=== PATIENT | male | born 1965 | race Caucasian/White ===

== ENCOUNTER 2025-04-14 12:11 | Inpatient (IN) | payer MEDICARE, OTHER ==
[2025-04-14] MEDS: LACTATED RINGERS 1,000 ML IV SCH (12:26)
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
[2025-04-14 12:29] LABS: Glucose,Whole Blood 210 mg/dL (70-110)
[2025-04-14] MEDS: cefTRIAXone IN SWFI 1,000 MG/10 ML SYRINGE IVP STA ×2 (12:31→12:32)
[2025-04-14 12:47] LABS: Basophils # (A) 0.04 10*3/uL (0.00-0.10); Basophils % (A) 0.5 %; Eosinophils # (A) 0.09 10*3/uL (0.04-0.35); Eosinophils % (A) 1.1 %; HCT 39.0 % (39.6-50.0); HGB 13.2 g/dL (13.0-17.0); Lymphocytes # (A) 1.50 10*3/uL (0.90-5.00); Lymphocytes % (A) 17.6 %; MCH 31.1 pg (27.0-32.0); MCHC 33.8 g/dL (32.0-37.0); MCV 92.0 fL (80.0-97.0); Monocytes # (A) 0.61 10*3/uL (0.20-1.00); Monocytes % (A) 7.1 %; Neutrophils # (A) 6.26 10*3/uL (1.80-7.70); Neutrophils % (A) 73.2 %; Platelet Count 169 10*3/uL (140-440); RBC 4.24 10*6/uL (4.40-5.60); RDW 15.3 % (11.5-14.5); WBC 8.54 10*3/uL (4.50-10.00)
[2025-04-14] MEDS: ADENOSINE 3 MG/ML 2 ML VIAL IVP STA ×2 (12:53→12:55)
[2025-04-14 13:02] LABS: ALT 27 U/L (4-49); AST 78 U/L (17-59); African American GFR (CKD) >90 (>60 ml/min/1.73 sqM); Albumin 3.8 g/dL (3.5-5.0); Alkaline Phosphatase 88 U/L (38-126); Anion Gap 13 mmol/L; Blood Urea Nitrogen 6 mg/dL (9-20); Calcium 8.6 mg/dL (8.4-10.2); Carbon Dioxide 22 mmol/L (22-30); Chloride 103 mmol/L (98-107); Glucose 173 mg/dL (74-99); Non-African American GFR(CKD) >90 (>60 ml/min/1.73 sqM); Potassium 3.6 mmol/L (3.5-5.1); Sodium 138 mmol/L (137-145); Total Protein 6.8 g/dL (6.3-8.2)
[2025-04-14] MEDS: MAGNESIUM SULFATE-D5W PMX 1 GM in DEXTROSE/WATER 1 100ML.BAG IVPB SCH (13:02)
--- NOTE | 2025-04-14 13:40 | XR ---
EXAMINATION TYPE: XR chest 1V portable DATE OF EXAM: 04/14/2025 1:05 PM COMPARISON: Chest radiographs from 11/27/2024. CLINICAL INDICATION: Male, 59 years old with history of Fever; H TECHNIQUE: XR chest 1V portable Frontal view of the chest. FINDINGS: Lungs/Pleura: Multifocal airspace opacities. No evidence of pneumothorax or pleural effusion. Pulmonary vascularity: Unremarkable. Heart/mediastinum: Cardiomediastinal silhouette is unremarkable. Musculoskeletal: No acute osseous pathology. Other findings: None IMPRESSION: Multifocal airspace opacities concerning for pneumonia. [facility], , 04/14/2025 1:37 PM
--- NOTE | 2025-04-14 13:41 | XR ---
EXAMINATION TYPE: XR forearm RT DATE OF EXAM: 04/14/2025 1:05 PM COMPARISON: None CLINICAL INDICATION: Male, 59 years old with history of Osteomyelitis; PHH, pain TECHNIQUE: XR forearm RT; forearm was examined in AP and lateral projections. FINDINGS: Soft tissue swelling and wound to the volar aspect of the forearm. No radiopaque foreign gayatri dy. No osseous erosion. No subcutaneous gas. No evidence for fracture. IMPRESSION: Soft tissues wound on the volar aspect of the forearm without radiopaque foreign body. No osseous ero valentin. No evidence of acute fracture. [facility], , 04/14/2025 1:39 PM
[2025-04-14] MEDS: DEXTROSE 5% IN WATER 100 ML with AMIODARONE 150 MG IV ONE (13:53)
[2025-04-14] MEDS: AMIODARONE 360 MG in DEXTROSE 5% IN WATER 200 ML IV ONE (14:11)
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
[2025-04-14] MEDS: KETOROLAC 15 MG/ML 1 ML VIAL IVP PRN (15:36)
[2025-04-14] MEDS ORDERED: KETOROLAC 15 MG/ML 1 ML VIAL IVP SCH (16:00)
[2025-04-14 16:13] LABS: T4, Free (Free Thyroxine) 1.70 ng/dL (0.78-2.19)
[2025-04-14] MEDS: SODIUM CHLORIDE 0.9% 1,000 ML IV ONE (16:20)
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
[2025-04-14] MEDS: AMIODARONE 450 MG in DEXTROSE 5% IN WATER 250 ML IV SCH (20:35)
[2025-04-14] MEDS ORDERED: VANCOMYCIN IV PER PHARMACY 1 EACH MISC MISCELLANE PRN (22:33)
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
[2025-04-14] MEDS: AMPICILLIN-SULBACTAM 3 GM in SODIUM CHLORIDE 0.9% 100 ML IVPB SCH (23:27)
[2025-04-15] MEDS: VANCOMYCIN 1,500 MG in SODIUM CHLORIDE 0.9% 500 ML 500 ML IVPB ONE (00:45)
[2025-04-15 08:39] VITALS: RESP 16; TEMP 98.3
[2025-04-15] MEDS: NICOTINE 21MG/24HR PATCH TRANSDERM SCH (08:40)
[2025-04-15] MEDS: VANCOMYCIN 1,250 MG in SODIUM CHLORIDE 0.9% 250 ML IVPB SCH (08:40)
[2025-04-15] MEDS: METOPROLOL TARTRATE 25 MG TAB PO SCH (08:40)
[2025-04-15] MEDS: LOSARTAN 25 MG TAB PO SCH (08:40)
--- NOTE | 2025-04-15 08:59 | CA ---
Transthoracic Echo Report Name: Quintin Gilbert Age: 59 Gender: M : 1965 Exam Date: 04/14/2025 15:02 Exam Location: [facility] Ht (in): 72 Wt (lb): 200 Ordering Physician: Sobeida Patton Attending/Referring Phys: [id number], Abdi Immigration Specialist Kathleen Mac RDCS Procedure CPT: Indications: LVF, SVT Cardiac Hx: Technical Quality: Fair Contrast 1: Total Dose (mL): Contrast 2: Total Dose (mL): MEASUREMENTS (Male / Female) Normal Values 2D ECHO LV Diastolic Diameter PLAX 5.4 cm 4.2 - 5.9 / 3.9 - 5.3 cm LV Systolic Diameter PLAX 4.5 cm IVS Diastolic Thickness 1.3 cm 0.6 - 1.0 / 0.6 - 0.9 cm LVPW Diastolic Thickness 1.3 cm 0.6 - 1.0 / 0.6 - 0.9 cm LV Relative Wall Thickness 0.5 RV Internal Dim ED PLAX 3.6 cm LA Systolic Diameter LX 4.4 cm 3.0 - 4.0 / 2.7 - 3.8 cm LV Diastolic Volume MOD 4C 216.4 cm??? LV Systolic Volume MOD 4C 142.6 cm??? LV Ejection Fraction MOD 4C 34.1 % LV Cardiac Index MOD 4C 3213.1 cm???/min???m??? LV Diastolic Length 4C 9.9 cm LV Systolic Length 4C 8.6 cm LV Diastolic Volume MOD 2C 186.2 cm??? LV Systolic Volume MOD 2C 105.5 cm??? LV Ejection Fraction MOD 2C 43.3 % LV Cardiac Index MOD 2C 3512.4 cm???/min???m??? LV Diastolic Length 2C 9.4 cm LV Systolic Length 2C 8.3 cm LA Volume 97.3 cm??? 18 - 58 / 22 - 52 cm??? LA Volume Index 45.0 cm???/m??? 16 - 28 cm???/m??? M-MODE Aortic Root Diameter MM 4.5 cm AV Cusp Separation MM 2.9 cm DOPPLER AV Peak Velocity 132.6 cm/s AV Peak Gradient 7.0 mmHg MV Area PHT 2.7 cm??? Mitral E Point Velocity 64.0 cm/s Mitral A Point Velocity 69.8 cm/s Mitral E to A Ratio 0.9 MV Deceleration Time 277.6 ms FINDINGS Left Ventricle Left ventricular ejection fraction is estimated at 35-40 %. Left ventricular cavity size normal. Mild concentric left ventricular hypertrophy. Right Ventricle Mild right ventricular dilatation. Unable to estimate the right ventricular systolic pressure. Right Atrium Normal right atrial size. No right atrial thrombus or mass seen. Left Atrium Mildly increased left atrial diameter. Severely increased left atrial volume. Mildly increased left atrial area. No left atrial thrombus or mass present. Mitral Valve Structurally normal mitral valve. No evidence for mitral valve prolapse. No mitral stenosis. Trace mitral regurgitation. Aortic Valve Trileaflet aortic valve. Aortic valve sclerosis. Tricuspid Valve Structurally normal tricuspid valve. No tricuspid stenosis, regurgitation or prolapse. Pulmonic Valve Structurally normal pulmonic valve. Trace pulmonic regurgitation. Pericardium No pericardial effusion. Aorta Moderate aortic dilatation at the level of the sinuses of valsalva 45 mm CONCLUSIONS Impaired LV function with EF between 35 to 40% Previewed by: Dr. Glenn Bennett MD (Electronically Signed) Final Date: 15 April 2025 08:58
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
[2025-04-15 12:39] VITALS: BP 142/74; PULSE 81
--- NOTE | 2025-04-15 15:26 | P.PN ---
Subjective Progress Note Date: 04/15/25 Principal diagnosis: Reason for follow-up right upper extremity wound infection Patient is a 59-year-old male with a past medical history significant for [place] and a chronic nonhealing wound to the right upper extremity which has been going on for almost 3 years will be getting to the hospital with dizziness noted to be tachycardic but no fever. On today's evaluation that is 04/15/2025, the patient continues to be afebrile, the patient is on room air and breathing comfortably, the Pt denies having any chest pain or cough, the patient denies having any abdominal pain no vomiting or any diarrhea denies any worsening pain to the right upper extremity. Patient white count is 8.54 as of yesterday no CBC was done today local culture growing MRSA E. coli and procidentca Objective - Vital Signs Vital signs: Vital Signs Temp 98.3 F 04/15/25 08:38 Pulse 81 04/15/25 12:00 Resp 16 04/15/25 12:00 BP 142/74 04/15/25 12:00 Pulse Ox 96 04/15/25 12:00 FiO2 Intake & Output 04/14/25 04/15/25 04/15/25 18:59 06:59 18:59 Intake Total 360 600 Output Total 1150 550 Balance 360 -1150 50 Weight 90.718 kg 101.3 kg Intake: Oral 360 600 Output: Urine 1150 550 Other: # Voids 1 - Exam GENERAL DESCRIPTION: Middle-age male lying in bed in no distress RESPIRATORY SYSTEM: Unlabored breathing , decreased breath sounds at bases HEART: S1 S2 regular rate and rhythm , ABDOMEN: Soft , no tenderness EXTREMITIES: Right extremity wound with rolled over edges minimal slough tissue and small amount of foul-smelling drainage - Labs CBC & Chem 7: 04/14/25 12:39 04/14/25 12:39 Labs: Abnormal Lab Results - Last 24 Hours (Table) 04/14/25 04/14/25 04/14/25 Range/Units 12:39 12:39 12:39 Plasma Lactic Acid Josue 5.5 H* (0.7-2.0) mmol/L Magnesium 1.2 L (1.6-2.3) mg/dL TSH 5.750 H (0.465-4.680) mIU/L Microbiology - Last 24 Hours (Table) 04/14/25 14:16 Gram Stain - Preliminary Arm - Right Wound Culture - Preliminary Escherichia coli Providencia rettgeri Presumptive MRSA Assessment and Plan (1) Wound, open, forearm Current Visit: Yes Status: Acute Code(s): S51.809A - UNSPECIFIED OPEN WOUND OF UNSPECIFIED FOREARM, INIT ENCNTR SNOMED Code(s): 838867057 (2) Wound infection Current Visit: Yes Status: Acute Code(s): T14.8XXA - OTHER INJURY OF UNSPECIFIED BODY REGION, INITIAL ENCOUNTER; L08.9 - LOCAL INFECTION OF THE SKIN AND SUBCUTANEOUS TISSUE, UNSP SNOMED Code(s): 47190872 Plan: 1patient with a chronic nonhealing wound to the right upper extremity which has been there for 3 years patient did have some slough tissue and foul-smelling and review of the microdata did shows positive culture with MRSA Morganella E. coli strep as well as anaerobes with a question of possible colonization versus causing mild infection as patient did have some foul-smelling drainage from it 2-local culture currently growing MRSA E. coli with the patient is covered with the Unasyn and vancomycin however per discussion with the admitting team plan is for possible discharge and for the patient to follow-up with the surgeon for possible excision of this wound to rule out malignancy may consider oral Augmentin and doxycycline on discharge in that case Dictation was produced using [employer] dictation software. please excuse any grammatical, word or spelling errors.
[2025-04-15] MEDS ORDERED: VANCOMYCIN 1,500 MG in SODIUM CHLORIDE 0.9% 500 ML 500 ML IVPB SCH (17:00)
[2025-04-16] MEDS ORDERED: VANCOMYCIN TROUGH DUE 1 EACH MISC MISCELLANE ONE (16:00)
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
--- NOTE | 2025-04-18 15:15 | CDI ---
Documentation Clarification Form Date: 04/18/2025 02:50:23 PM From: Ibeth Mayo RN, CCDS Email: [email or web address] Admit Date: 04/14/2025 03:34:00 PM Patient Name: Quintin Gilbert Visit Number: [id number] Discharge Date: 04/15/2025 05:36:00 PM ATTENTION: The Clinical Documentation Specialists (CDI) and [facility] Coding Staff appreciate your assistance in clarifying documentation. Please respond to the clarification below the line at the bottom and electronically sign. The CDI & [facility] Coding staff will review the response and follow-up if needed. Please note: Queries are made part of the Legal Health Record. If you have any questions, please contact the author of this message via ITS. Doctor Noble Mukherjee CXR was concerning for pneumonia and the customs consultant documented pneumonia in the 04/14 progress note. Additional clarification is requested. History/Risk Factors: CHF, [place] and right forearm traumatic wound. Presented with lightheadedness and dizziness from underlying SVT. Also with right forearm traumatic wound thought to be marjolin ulcer. Clinical Indicators: 04/14 CXR: Multifocal airspace opacities concerning for pneumonia. 04/14 Admission VS: Temp 98.7 HR 189 RR 18 BP 86/69 04/14 Labs: WBC 8.54 lactic acid 5.5 04/14 ED: "Patient's x-ray showed opacification of the right base however patient was not have any difficulty breathing no white count no fever and at this time I did not think he was having a pneumonia however he did get 2 g of Rocephin in the emergency department." 04/14 Cardiology: "SVT. Nonhealing chronic wound to the right forearm. Lactic acidosis. Pneumonia." 04/14 ID: "patient did have a chest x-ray multifocal airspace opacity concerning for pneumonia forearm x-ray soft tissue wound on the volar aspect of the forearm without radiographic foreign body no bony erosion no evidence for acute fracture infectious disease was consulted for further management of the right forearm wound and need for antibiotic therapy." Treatment: IV Rocephin 1000mg x1 on 04/14; 0.9 NS @75mL/hr 04/14-04/15 Please clarify if Pneumonia was a valid diagnosis? [ ] No, Pneumonia was ruled out [ ] Yes, Pneumonia was ruled in as evidenced by (additional clinical support): [ ] Other (please specify diagnosis) [ ] Unable to determine MTDD
== END 2025-04-15 17:36 | disposition home or self-care (01) | DRG 309 ==
LOC: EC 12:11 → 3SCARD 15:34
PROVIDERS: ADMIT Hospitalist; ATTEND Hospitalist
PROC: 3E033RZ Introduction of Antiarrhythmic into Peripheral Vein, Percutaneous Approach (ICD-10-PCS; principal; 2025-04-14)
DX: I47.10 Supraventricular tachycardia, unspecified (principal); E87.20 Acidosis, unspecified; I50.22 Chronic systolic (congestive) heart failure; C44.90 Unspecified malignant neoplasm of skin, unspecified; F10.10 Alcohol abuse, uncomplicated; B96.89 Other specified bacterial agents as the cause of diseases classified elsewhere; B96.20 Unspecified Escherichia coli [E. coli] as the cause of diseases classified elsewhere; J44.9 Chronic obstructive pulmonary disease, unspecified; L03.113 Cellulitis of right upper limb; L98.492 Non-pressure chronic ulcer of skin of other sites with fat layer exposed; F17.210 Nicotine dependence, cigarettes, uncomplicated; S51.801D Unspecified open wound of right forearm, subsequent encounter; Y90.0 Blood alcohol level of less than 20 mg/100 ml; F41.9 Anxiety disorder, unspecified; I25.2 Old myocardial infarction; Z85.828 Personal history of other malignant neoplasm of skin; Z86.14 Personal history of Methicillin resistant Staphylococcus aureus infection; W34.01 Accidental discharge of gas, air or spring-operated guns
CPT/HCPCS: 36415; 71045; 80053; 80320; 83605; 83735; 84439; 84443; 85025; 87040; 87070; 87077; 87186; 87205; 93005; 93306; 96361; 96365; 96366; 96368; 96375; 99291